=== PATIENT | male | born 1980 | race Two or more races ===

== ENCOUNTER 2021-08-15 12:57 | Emergency (ER) | payer OTHER ==
[~2021-08-15] VITALS: Ht 175.3 cm; Wt 108.9 kg
[2021-08-15] MEDS ORDERED: HYDROcodone-ACET 5/325MG TAB PO ONE (13:30)
[2021-08-15] MEDS ORDERED: KETOROLAC TROMETH 30 MG/ML 1ML VIAL IM ONE (13:30)
[2021-08-15] MEDS ORDERED: LIDOCAINE 1% HCL (LOCAL ANESTH.) INJ 20ML MDV ID ONE (14:00)
[2021-08-15] MEDS ORDERED: TETANUS-DIPTH-ACEL PERTUSSIS 0.5ML SYR Tdap IM ONE (14:45)
[2021-08-15] MEDS ORDERED: MORPHINE SULFATE INJECTION 2 MG/ML SYRG IM ONE (16:45)
[2021-08-15] MEDS ORDERED: ONDANSETRON ODT 4 MG TAB PO ONE (17:00)
[2021-08-15] MEDS ORDERED: ceFAZolin 1GM/50ML 100 ML IV ONE ×2 (17:30→18:00)
[2021-08-15] MEDS ORDERED: MORPHINE SULFATE INJECTION 2 MG/ML SYRG IV ONE (18:00)
[2021-08-15 20:17] VITALS: BP 130/85
== END 2021-08-15 20:37 | disposition short-term general hospital (02) ==
LOC: EDBD 12:57 → ER 12:57
DX: S66.822A Laceration of other specified muscles, fascia and tendons at wrist and hand level, left hand, initial encounter (principal); W26.0XXA Contact with knife, initial encounter; Y93.89 Activity, other specified; Y92.89 Other specified places as the place of occurrence of the external cause; Y99.8 Other external cause status; E11.9 Type 2 diabetes mellitus without complications
CPT/HCPCS: 36415; 64450; 73130; 73140; 87426; 90471; 90715; 96365; 96372; 96375; 99285; J0690; J1885; J2001; J2270; Q0162